=== PATIENT | male | born 1975 | race Caucasian/White ===

== ENCOUNTER 2020-07-19 23:47 | Emergency (ER) | payer OTHER ==
[~2020-07-19] VITALS: Ht 167.6 cm; Wt 95.3 kg
[2020-07-20] MEDS ORDERED: GLUMETZA500 MG (00:05)
[2020-07-20] MEDS ORDERED: PROVENTIL HFA6.7 GM IH (05:35)
[2020-07-20] MEDS ORDERED: ZYNCOF 20-400120 ML PO (05:35)
[2020-07-20] MEDS ORDERED: ZITHROMAX500 MG PO (05:35)
== END 2020-07-20 05:47 | disposition home or self-care (01) ==
LOC: ER 23:47
DX: U07.1 COVID-19 (principal); J12.89 Other viral pneumonia; E11.65 Type 2 diabetes mellitus with hyperglycemia; R05 Cough

== ENCOUNTER → 2020-08-24 | Emergency (ER) | payer OTHER ==
[~2020-08-24] MED LIST: GLUMETZA500 MG; PROVENTIL HFA6.7 GM IH; ZITHROMAX500 MG PO; ZYNCOF 20-400120 ML PO
== END | disposition left against medical advice (07) ==
LOC: ER 02:05
DX: Z53.20 Procedure and treatment not carried out because of patient's decision for unspecified reasons (principal)